=== PATIENT | female | born 1975 | race Caucasian/White ===

== ENCOUNTER 2016-10-02 21:03 | Emergency (ER) | payer OTHER ==
[2016-10-02 21:11] VITALS: TEMP 97.9
[2016-10-02] MEDS ORDERED: TDAP ADULT 0.5 ML INJ (BOOSTRIX) IM ONE (21:23)
[2016-10-02] MEDS ORDERED: LORazepam 1 MG TAB PO ONE (21:23)
[2016-10-02] MEDS ORDERED: IBUPROFEN 200 MG TAB PO ONE (21:23)
--- NOTE | 2016-10-02 21:23 | EDPHY ---
H & P Smoking Status: Never smoked Time Seen by Provider: 10/02/16 21:14 HPI/ROS: CHIEF COMPLAINT: Left hand laceration HISTORY OF PRESENT ILLNESS: 41-year-old female [id number] with out-of- date tetanus was pitting an avocado and sustained accidental stab laceration, not through and through, to her left hand in the webspace to in the 2nd and 3rd distal metacarpals. She is complaining of paresthesia to the 2nd and 3rd digits and pain. She is complaining of anxiety. PRIMARY CARE PROVIDER: REVIEW OF SYSTEMS: A ten point review of systems was performed and is negative with the exception of the items mentioned in the HPI PHYSICAL EXAM (Prior to examination, patient consented to physical exam, hands were washed and my usual and customary physical exam procedures followed) 1) GENERAL: Well-developed, well-nourished, alert and oriented. Appears anxious. 2) HEAD: Normocephalic 3) HEENT: sclera anicteric 4) LUNGS: Breathing comfortably. 5) SKIN: 1.5 cm well-demarcated laceration to the webspace between the 2nd and 3rd distal metacarpal . Not through and through. No hematoma. No signs of infection. 6) MUSCULOSKELETAL: No gross abnormality to flexor or extensor function however further fine evaluation, she is unable or unwilling to assess flexor tendon function secondary to patient's pain both before and after anesthetic administration 7) NEUROLOGIC: Decreased sensation distal to the 2nd and 3rd digits. (Fito Martines) Constitutional: Initial Vital Signs Temperature (C) 36.6 C 10/02/16 21:06 Heart Rate 85 10/02/16 21:06 Respiratory Rate 17 10/02/16 21:06 Blood Pressure 123/82 H 10/02/16 21:06 O2 Sat (%) 96 10/02/16 21:06 O2 Delivery Mode Room Air Allergies/Adverse Reactions: Sulfa (Sulfonamide Antibiotics) Allergy (Verified 10/02/13 23:50) Home Medications: Medication Instructions Recorded MINOCYCLINE HCL 01/07/14 Cephalexin [Keflex] 500 mg PO QID 5 Days 10/02/16 ED Images - Extremities Hands Front Left/Right: 1 - laceration MDM/Departure - MDM Imaging Results: Imaging Impressions Hand X-Ray 10/02/16 21:36 Impression: Negative for fracture or radiopaque foreign body. Procedures: Procedure: Laceration repair. I explained the indications, risks and benefits for both laceration repair and anesthetic administration. Verbal consent was obtained from the patient . The laceration on the left hand was anesthetized using 0.5% bupivicaine with epinephrine . After anesthetic administered the patient was observed for a period of time and had no apparent adverse effects. The wound was cleaned, prepped, draped in normal sterile fashion and explored to its base. No foreign body seen, no foreign bodies palpated. There were no deep structures involved. The wound was repaired with 3 simple interrupted 5 O Ethilon sutures . The wound repair was simple. The procedure was performed by myself. Patient has been informed that scarring will occur, although efforts have been made to minimize this. Procedure: Splint A Velcro volar wrist splint was applied by ER roving technician in order to reduce stress on laceration site. After application of the splint I returned and re- examined the patient. The splint was adequately immobilizing the joint and distal to the splint the patient's circulation and sensation were intact. Patient shows no signs of compartment syndrome. Was given orthopedic precautions. (Fito Martines) Medications Given: Discontinued Medications Cephalexin (Keflex 500 Mg Prepack#4) 1 btl TAKEHOME EDNOW ONE PRN Reason: Protocol Stop: 10/02/16 22:02 Last Admin: 10/02/16 22:32 Dose: 1 btl Diphtheria/Tetanus/Acell Pertussis (Boostrix) 0.5 ml IM .ONCE ONE Stop: 10/02/16 21:24 Last Admin: 10/02/16 21:30 Dose: 0.5 ml Ibuprofen (Motrin) 800 mg PO EDNOW ONE Stop: 10/02/16 21:24 Last Admin: 10/02/16 21:27 Dose: 800 mg Lorazepam (Ativan) 1 mg PO EDNOW ONE Stop: 10/02/16 21:24 Last Admin: 10/02/16 21:29 Dose: 1 mg ED Course/Re-evaluation: Re-evaluation with serial examinations. I did recommend follow up with Hand surgery and have provided this follow-up information as I am unable to adequately assess flexor tendon function in this patient secondary to her pain. She has been informed of flexor tendon injury is not ruled out. (Fito Martines ) The patient was evaluated and managed by the Physician Anthropologist Physical/ Nurse Practitioner. My co-signature indicates that I have reviewed this chart and I agree with the findings and plan of care as documented. I am the secondary supervising physician. (Rosie Martinez) - Depart Disposition: Home, Routine, Self-Care Clinical Impression: Laceration of left hand Qualifiers: Encounter type: initial encounter Foreign body presence: without foreign body Qualified Code(s): S61.412A - Laceration without foreign body of left hand, initial encounter Condition: Good Instructions: Cephalexin (By mouth), Care For Your Stitches (ED), Laceration ( ED) Additional Instructions: Return to the ER if you develop redness, swelling, discharge, warmth to the wound, red streaks going up your arm , or any other symptoms that concern you. Return to the ER in 10 days for suture removal. Recommend you follow up with hand surgeon prior to that. Prescriptions: Cephalexin [Keflex] 500 mg PO QID 5 Days Referrals: Noah Tran MD [Medical Doctor] - 2-3 days, call for appt. (Dr. Noah Tran is a hand surgeon)
[2016-10-02] MEDS ORDERED: CEPHALEXIN 500MG PREPACK#4 BTL TAKEHOME ONE (22:01)
[2016-10-02 22:37] VITALS: BP 111/67; PULSE 56; RESP 18; O2SAT 97
== END 2016-10-02 22:36 | disposition home or self-care (01) ==
PROC: 0HQGXZZ Repair Left Hand Skin, External Approach (ICD-10-PCS; principal; 2016-10-02)
DX: S61.412A Laceration without foreign body of left hand, initial encounter (principal); Z23 Encounter for immunization; W26.8XXA Contact with other sharp object(s), not elsewhere classified, initial encounter; Y92.89 Other specified places as the place of occurrence of the external cause; Y99.8 Other external cause status; Y93.89 Activity, other specified
CPT/HCPCS: L3908

== ENCOUNTER 2016-10-31 16:52 | Emergency (ER) | payer OTHER ==
[2016-10-31 17:03] VITALS: TEMP 98.6; O2SAT 98
[2016-10-31] MEDS ORDERED: METOCLOPRAMIDE 10 MG/2 ML VIAL IVP ONE (17:29)
[2016-10-31] MEDS ORDERED: NS 1,000 ML IV ONE (17:29)
[2016-10-31] MEDS ORDERED: KETOROLAC 30 MG/1 ML SDV IVP ONE (17:29)
[2016-10-31 17:44] LABS: % IMMATURE GRANULYOCYTES 0.2 % (0.0-1.1); ABSOLUTE IMMATURE GRANULOCYTES 0.02 10^3/uL (0.00-0.10); ADD DIFF? NO; ADD MORPH? NO; ADD SCAN? NO; ATYPICAL LYMPHOCYTE FLAG 0 (0-99); FRAGMENT RBC FLAG 0 (0-99); HEMATOCRIT 43.4 % (38.0-47.0); HEMOGLOBIN 15.1 g/dL (12.6-16.3); LEFT SHIFT FLG 0 (0-99); LIPEMIA HEMOLYSIS FLAG 90 (0-99); MEAN CELL HEMOGLOBIN 31.1 pg (27.9-34.1); MEAN CELL HEMOGLOBIN CONCENTR. 34.8 g/dL (32.4-36.7); MEAN CELL VOLUME 89.5 fL (81.5-99.8); MEAN PLATELET VOLUME 9.9 fL (8.7-11.7); PLATELET CLUMPS FLAG 20 (0-99); PLATELET COUNT 255 10^3/uL (150-400); RED BLOOD CELL COUNT 4.85 10^6/uL (4.18-5.33); RED CELL DISTRIBUTION WIDTH 11.7 % (11.5-15.2)
[2016-10-31 18:02] LABS: ALANINE AMINOTRANSFERASE 31 IU/L (9-52); ALBUMIN 4.4 g/dL (3.5-5.0); ALKALINE PHOSPHATASE 39 IU/L (38-126); ANION GAP 14 mEq/L (8-16); ASPARTATE AMINOTRANSFERASE 18 IU/L (14-46); BILIRUBIN,TOTAL 1.1 mg/dL (0.1-1.4); CALCIUM 9.7 mg/dL (8.5-10.4); CARBON DIOXIDE 22 mEq/l (22-31); CHLORIDE 102 mEq/L (97-110); CREATININE 0.8 mg/dL (0.6-1.0); GLOMERULAR FILTRATION RATE > 60; GLUCOSE 91 mg/dL (70-100); SODIUM 138 mEq/L (134-144); TOTAL PROTEIN 7.6 g/dL (6.3-8.2)
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
[2016-10-31] MEDS ORDERED: MAG HYDROX/AL HYDROX/SIMETH 30 ML UDCUP PO ONE (19:01)
[2016-10-31 19:16] VITALS: BP 105/64; PULSE 65; RESP 16
== END 2016-10-31 19:14 | disposition home or self-care (01) ==
LOC: CED 16:52
DX: R10.13 Epigastric pain (principal); R51 Headache; R11.0 Nausea; E86.9 Volume depletion, unspecified; Z87.891 Personal history of nicotine dependence
CPT/HCPCS: 80053-PO; 83690-PO; 84703-PO; 85025-PO; 96374; J1200; J1885; J2765

== ENCOUNTER → 2016-12-31 | Outpatient (CLI) | payer OTHER | LOC: CIMAGING 08:06 | PROVIDERS: ATTEND Obstetrics & Gynecology | DX: Z12.31 Encounter for screening mammogram for malignant neoplasm of breast (principal) | CPT/HCPCS: G0202 ==

== ENCOUNTER → 2017-01-10 | Outpatient (CLI) | payer OTHER | LOC: CIMAGING 13:35 | PROVIDERS: ATTEND Obstetrics & Gynecology | DX: Z12.39 Encounter for other screening for malignant neoplasm of breast (principal); N64.89 Other specified disorders of breast | CPT/HCPCS: 76641-PO; G0206 ==